=== PATIENT | male | born 1995 | race Hispanic/Latino ===

== ENCOUNTER 2021-01-08 15:16 | Emergency (ER) | payer MEDICAID ==
[2021-01-08 16:02] VITALS: BP 125/87
--- NOTE | 2021-01-08 16:47 | Emergency Department Report ---
HPI - General Chief Complaint: Back Pain/Injury Time Seen by Provider: 01/08/21 16:42 - HPI HPI: This is a 25-year-old male presents to the emergency department with a complaint of a 3 to 4-month history of mid back pain and bilateral lower side /flank pain. Patient came into the emergency department today as he says that it has worsened over the past week. Overall he says that worsens with any significant exertion. No known alleviating factors. Patient denies any fever, numbness or paresthesias, weakness, urinary or bladder incontinence or retention, difficulty with ambulation, rash, dysuria, hematuria, or any neurological symptoms. He has a past medical history of hypothyroidism, insulin-dependent diabetes. The patient has a primary care physician through the [facility] system and was supposed to see him a few days ago but missed the appointment. No recent travel or sick contacts at home. He is a tobacco smoker but denies any illicit drug use, including any IVDA. ED Past Medical Hx - Medications Home Medications: Home Medications Medication Instructions Recorded Confirmed Last Taken Type Cyclobenzaprine [Flexeril] 10 mg PO TID PRN #12 tablet 01/08/21 Unknown Rx Ibuprofen [Motrin 800 MG tab] 800 mg PO Q8HR PRN #20 tablet 01/08/21 Unknown Rx ED Review of Systems ROS: Stated complaint: BODY PAIN Other details as noted in HPI Comment: All other systems reviewed and negative Constitutional: denies: chills, fever Eyes: denies: eye pain, vision change ENT: denies: ear pain, throat pain Respiratory: denies: cough, shortness of breath Cardiovascular: denies: chest pain, palpitations Gastrointestinal: denies: abdominal pain, vomiting Genitourinary: denies: dysuria, discharge Musculoskeletal: back pain. denies: joint swelling Skin: denies: rash, lesions Neurological: denies: weakness, numbness, paresthesias Physical Exam - Physical Exam Vital Signs: Vital Signs 01/08/21 16:00 Temperature 98.3 F Pulse Rate 92 H Respiratory 16 Rate Blood Pressure 125/87 O2 Sat by Pulse 98 Oximetry Physical Exam: GENERAL: The patient is well-developed well-nourished. HENT: Normocephalic. Atraumatic. Patient has moist mucous membranes. EYES: Extraocular motions are intact. NECK: Supple. Trachea is midline. CHEST/LUNGS: Clear to auscultation. There is no respiratory distress noted. HEART/CARDIOVASCULAR: Regular. There is no tachycardia. There is no murmur. ABDOMEN: Abdomen is soft, nontender. Patient has normal bowel sounds. There is no abdominal distention. SKIN: Skin is warm and dry. NEURO: The patient is awake, alert, and oriented. The patient is cooperative. The patient has no focal neurologic deficits. Normal speech. MUSCULOSKELETAL: There is no tenderness or deformity. There is no limitation range of motion. There is no evidence of acute injury. Muscle strength 5 out of 5 for upper and lower extremities bilaterally. DTR patella +2/4 bilaterally. BACK: There is bilateral paraspinal tenderness to palpation from the mid thoracic down through the lumbar back. No CVA tenderness to palpation. ED Course Vital Signs 01/08/21 16:00 Temperature 98.3 F Pulse Rate 92 H Respiratory 16 Rate Blood Pressure 125/87 O2 Sat by Pulse 98 Oximetry ED Medical Decision Making - Medical Decision Making This patient presents with a 3 to 4-month history of mid back pain and bilateral lower flank pain. There is some reproducible paraspinal tenderness to palpation. Patient does not have any problems with bowel or bladder, numbness or paresthesias, or any neurological deficits. Muscle strength and DTRs are intact. Vital signs reassuring including being afebrile. Patient denies any dysuria or hematuria. Therefore, this all appears low suspicion for kidney stones, cauda equina, cord compression syndrome, epidural abscess. The back pain appears more consistent with something musculoskeletal as it worsens after significant exertion. He does not appear to have any emergency or life- threatening condition that would require admission or surgical intervention. He will be placed on anti-inflammatories and given a prescription for a muscle relaxer. He has been instructed to follow-up with his PCP and has also been given an outpatient referral for an orthopedist. Critical Care Time: No Critical care attestation.: If time is entered above; I have spent that time in minutes in the direct care of this critically ill patient, excluding procedure time. ED Disposition Clinical Impression: Bilateral flank pain Back pain Qualifiers: Back pain location: back pain in unspecified location Chronicity: chronic Back pain laterality: bilateral Qualified Code(s): M54.9 - Dorsalgia, unspecified; G89.29 - Other chronic pain Disposition: 01 HOME / SELF CARE / HOMELESS Is pt being admited?: No Condition: Stable Instructions: Flank Pain, Adult, Chronic Back Pain Additional Instructions: Please follow-up with your primary care physician through [facility] in the next few days. I am giving you a referral for a local orthopedist, Dr. Gonzalez, to follow-up regarding your back pains. You have been prescribed a medication that is sedating and therefore should not be taken prior to driving, working, and responsible for children and in no way should be mixed with alcohol of any quantity. Return to the emergency department with any worsening of your symptoms, new or concerning symptoms not addressed during this current emergency department visit, or with any acute distress. Prescriptions: Cyclobenzaprine [Flexeril] 10 mg PO TID PRN #12 tablet PRN Reason: Muscle Spasm Ibuprofen [Motrin 800 MG tab] 800 mg PO Q8HR PRN #20 tablet PRN Reason: Pain , Severe (7-10) Referrals: OBED GONZALEZ MD [Staff Physician] - 3-5 Days PCP, Your [Other] - 3-5 Days Time of Disposition: 16:47
== END 2021-01-08 17:21 | disposition home or self-care (01) ==
LOC: ED 15:16
DX: M54.9 Dorsalgia, unspecified (principal); R10.31 Right lower quadrant pain; R10.32 Left lower quadrant pain
CPT/HCPCS: 99281

== ENCOUNTER 2021-10-20 22:56 | Emergency (ER) | payer MEDICAID ==
[2021-10-21] MEDS ORDERED: ONDANSETRON 4 MG/2 ML INJ IV ONE (00:18)
[2021-10-21] MEDS ORDERED: MORPHINE 4 MG/1 ML INJ IV ONE (00:18)
--- NOTE | 2021-10-21 00:25 | Emergency Department Report ---
<NAVJOT PÉREZ - Last Filed: 10/21/21 05:59> ED General Adult HPI - General Chief complaint: Abdominal Pain Stated complaint: HEAD PAIN/ NAUSEA/VOMITING Time Seen by Provider: 10/21/21 00:11 Source: EMS Mode of arrival: Stretcher Limitations: No Limitations - History of Present Illness Initial comments: 26-year-old male with a past medical history of insulin-dependent diabetes, colitis, stomach ulcers, and cataracts presents to the hospital with complaints of hypoglycemia. Patient states his brother called EMS because he was unresponsive. Patient received D5 (unclear amount) and glucose was 73. Blood glucose 167 upon ED arrival. Patient states he now has a moderate to severe headache, nausea, and vomiting since waking up. He took 7.5 units of insulin and states he did eat prior to this episode. He denies infectious symptoms. Severity scale (0 -10): 0 - Related Data Previous Rx's Medication Instructions Recorded Last Taken Type Cyclobenzaprine [Flexeril] 10 mg PO TID PRN #12 tablet 01/08/21 Unknown Rx Ibuprofen [Motrin 800 MG tab] 800 mg PO Q8HR PRN #20 tablet 01/08/21 Unknown Rx Allergies Allergy/AdvReac Type Severity Reaction Status Date / Time No Known Allergies Allergy Unverified 01/08/21 16:34 ED Review of Systems Comment: All other systems reviewed and negative ED Past Medical Hx - Social History Smoking Status: Unknown if ever smoked Substance Use Type: Other - Medications Home Medications: Home Medications Medication Instructions Recorded Confirmed Last Taken Type Cyclobenzaprine [Flexeril] 10 mg PO TID PRN #12 tablet 01/08/21 Unknown Rx Ibuprofen [Motrin 800 MG tab] 800 mg PO Q8HR PRN #20 tablet 01/08/21 Unknown Rx ED Physical Exam - General Limitations: No Limitations - Other Other exam information: General: No acute distress Head: Atraumatic Eyes: Eyes closed refusing to make eye contact ENT: Moist mucous membranes Neck: Normal appearance, lower midline cervical tenderness Chest: Clear to auscultation bilaterally CV: Regular rate and rhythm Abdomen: Soft, normal bowel sounds, nontender, nondistended, no rebound or guarding Back: Normal inspection Extremity: Normal inspection, full range of motion Neuro: Alert O x 3, no facial asymmetry, speech clear, no gross motor sensory deficit Psych: Appropriate behavior Skin: No rash ED Course - Reevaluation(s) Reevaluation #1: 10/21/21 04:56 Patient mainly complains of a headache which is mildly improved after morphine but still persist. 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 I do not suspect that this is the cause of his pain given that his symptoms started only after unresponsive episode and hypoglycemia. Glucose has remained stable since ED stay without recurrent hypoglycemia. Patient has leukocytosis without obvious signs of infection. Patient complains of chronic colitis and has generalized abdominal pain. CT abdomen pelvis with IV contrast performed to rule out acute intra abdominal pathology requiring treatment. ED Medical Decision Making - Lab Data Result diagrams: 10/21/21 01:17 10/21/21 01:17 Lab Results 10/21/21 10/21/21 10/21/21 Range/Units 00:30 01:17 01:17 WBC 18.2 H (4.5-11.0) K/mm3 RBC 5.45 H (3.65-5.03) M/mm3 Hgb 15.1 (11.8-15.2) gm/dl Hct 46.8 H (35.5-45.6) % MCV 86 (84-94) fl MCH 28 (28-32) pg MCHC 32 (32-34) % RDW 14.2 (13.2-15.2) % Plt Count 372 (140-440) K/mm3 Add Manual Diff Complete Total Counted 100 Seg Neutrophils % [employer] Seg Neuts % (Manual) 94.0 H (40.0-70.0) % Band Neutrophils % 0 % Lymphocytes % (Manual) 4.0 L (13.4-35.0) % Reactive Lymphs % (Man) 0 % Monocytes % (Manual) 2.0 (0.0-7.3) % Eosinophils % (Manual) 0 (0.0-4.3) % Basophils % (Manual) 0 (0.0-1.8) % Metamyelocytes % 0 % Myelocytes % 0 % Promyelocytes % 0 % Blast Cells % 0 % Nucleated RBC % Not Reportable Seg Neutrophils # Man 17.1 H (1.8-7.7) K/mm3 Band Neutrophils # 0.0 K/mm3 Lymphocytes # (Manual) 0.7 L (1.2-5.4) K/mm3 Abs React Lymphs (Man) 0.0 K/mm3 Monocytes # (Manual) 0.4 (0.0-0.8) K/mm3 Eosinophils # (Manual) 0.0 (0.0-0.4) K/mm3 Basophils # (Manual) 0.0 (0.0-0.1) K/mm3 Metamyelocytes # 0.0 K/mm3 Myelocytes # 0.0 K/mm3 Promyelocytes # 0.0 K/mm3 Blast Cells # 0.0 K/mm3 WBC Morphology Not Reportable Hypersegmented Neuts Not Reportable Hyposegmented Neuts Not Reportable Hypogranular Neuts Not Reportable Smudge Cells Not Reportable Toxic Granulation Not Reportable Toxic Vacuolation Not Reportable Dohle Bodies Not Reportable Pelger-Huet Anomaly Not Reportable Rayo Rods Not Reportable Platelet Estimate Consistent w auto Clumped Platelets Not Reportable Plt Clumps, EDTA Not Reportable Large Platelets Not Reportable Giant Platelets Not Reportable Platelet Satelliting Not Reportable Plt Morphology Comment Not Reportable RBC Morphology Normal Dimorphic RBCs Not Reportable Polychromasia Not Reportable Hypochromasia Not Reportable Poikilocytosis Not Reportable Anisocytosis Not Reportable Microcytosis Not Reportable Macrocytosis Not Reportable Spherocytes Not Reportable Pappenheimer Bodies Not Reportable Sickle Cells Not Reportable Target Cells Not Reportable Tear Drop Cells Not Reportable Ovalocytes Not Reportable Helmet Cells Not Reportable Fernandez-Ronneby Bodies Not Reportable [place] Rings Not Reportable [place] Cells Not Reportable Bite Cells Not Reportable Crenated Cell Not Reportable Elliptocytes Not Reportable Acanthocytes (Spur) Not Reportable Rouleaux Not Reportable Hemoglobin C Crystals Not Reportable Schistocytes Not Reportable Malaria parasites Not Reportable [place] Bodies Not Reportable Hem Pathologist Commnt No Sodium 143 (137-145) mmol/L Potassium 4.4 (3.6-5.0) mmol/L Chloride 101.3 (98-107) mmol/L Carbon Dioxide 33 H (22-30) mmol/L Anion Gap 13 mmol/L BUN 10 (9-20) mg/dL Creatinine 0.8 (0.8-1.3) mg/dL Estimated GFR > 60 ml/min BUN/Creatinine Ratio 13 % Glucose 137 H (75-100) mg/dL POC Glucose 128 H (70-105) mg/dL Calcium 9.6 (8.4-10.2) mg/dL Total Bilirubin 0.70 (0.1-1.2) mg/dL AST 17 (5-40) units/L ALT 15 (7-56) units/L Alkaline Phosphatase 103 (35-129) units/L Total Protein 7.1 (6.3-8.2) g/dL Albumin 4.3 (3.9-5) g/dL Albumin/Globulin Ratio 1.5 % Urine Color (Yellow) Urine Turbidity (Clear) Urine pH (5.0-7.0) Ur Specific [place] (1.003-1.030) Urine Protein (Negative) mg/dL Urine Glucose (UA) (Negative) mg/dL Urine Ketones (Negative) mg/dL Urine Blood (Negative) Urine Nitrite (Negative) Urine Bilirubin (Negative) Urine Urobilinogen (<2.0) mg/dL Ur Leukocyte Esterase (Negative) Urine WBC (Auto) (0.0-6.0) /HPF Urine RBC (Auto) (0.0-6.0) /HPF Urine Bacteria (Auto) (Negative) /HPF Urine Mucus /HPF Urine Sperm (COUNSELLING PSYCHOLOGIST) /HPF Urine Opiates Screen Urine Methadone Screen Ur Barbiturates Screen Ur Phencyclidine Scrn Ur Amphetamines Screen U Benzodiazepines Scrn Urine Cocaine Screen U Marijuana (THC) Screen Drugs of Abuse Note Plasma/Serum Alcohol (0-0.07) % 10/21/21 10/21/21 10/21/21 Range/Units 01:17 01:22 02:18 WBC (4.5-11.0) K/mm3 RBC (3.65-5.03) M/mm3 Hgb (11.8-15.2) gm/dl Hct (35.5-45.6) % MCV (84-94) fl MCH (28-32) pg MCHC (32-34) % RDW (13.2-15.2) % Plt Count (140-440) K/mm3 Add Manual Diff Total Counted Seg Neutrophils % Seg Neuts % (Manual) (40.0-70.0) % Band Neutrophils % % Lymphocytes % (Manual) (13.4-35.0) % Reactive Lymphs % (Man) % Monocytes % (Manual) (0.0-7.3) % Eosinophils % (Manual) (0.0-4.3) % Basophils % (Manual) (0.0-1.8) % Metamyelocytes % % Myelocytes % % Promyelocytes % % Blast Cells % % Nucleated RBC % Seg Neutrophils # Man (1.8-7.7) K/mm3 Band Neutrophils # K/mm3 Lymphocytes # (Manual) (1.2-5.4) K/mm3 Abs React Lymphs (Man) K/mm3 Monocytes # (Manual) (0.0-0.8) K/mm3 Eosinophils # (Manual) (0.0-0.4) K/mm3 Basophils # (Manual) (0.0-0.1) K/mm3 Metamyelocytes # K/mm3 Myelocytes # K/mm3 Promyelocytes # K/mm3 Blast Cells # K/mm3 WBC Morphology Hypersegmented Neuts Hyposegmented Neuts Hypogranular Neuts Smudge Cells Toxic Granulation Toxic Vacuolation Dohle Bodies Pelger-Huet Anomaly Rayo Rods Platelet Estimate Clumped Platelets Plt Clumps, EDTA Large Platelets Giant Platelets Platelet Satelliting Plt Morphology Comment RBC Morphology Dimorphic RBCs Polychromasia Hypochromasia Poikilocytosis Anisocytosis Microcytosis Macrocytosis Spherocytes Pappenheimer Bodies Sickle Cells Target Cells Tear Drop Cells Ovalocytes Helmet Cells Fernandez-Ronneby Bodies [place] Rings [place] Cells Bite Cells Crenated Cell Elliptocytes Acanthocytes (Spur) Rouleaux Hemoglobin C Crystals Schistocytes Malaria parasites [place] Bodies Hem Pathologist Commnt Sodium (137-145) mmol/L Potassium (3.6-5.0) mmol/L Chloride (98-107) mmol/L Carbon Dioxide (22-30) mmol/L Anion Gap mmol/L BUN (9-20) mg/dL Creatinine (0.8-1.3) mg/dL Estimated GFR ml/min BUN/Creatinine Ratio % Glucose (75-100) mg/dL POC Glucose 138 H 139 H (70-105) mg/dL Calcium (8.4-10.2) mg/dL Total Bilirubin (0.1-1.2) mg/dL AST (5-40) units/L ALT (7-56) units/L Alkaline Phosphatase (35-129) units/L Total Protein (6.3-8.2) g/dL Albumin (3.9-5) g/dL Albumin/Globulin Ratio % Urine Color (Yellow) Urine Turbidity (Clear) Urine pH (5.0-7.0) Ur Specific [place] (1.003-1.030) Urine Protein (Negative) mg/dL Urine Glucose (UA) (Negative) mg/dL Urine Ketones (Negative) mg/dL Urine Blood (Negative) Urine Nitrite (Negative) Urine Bilirubin (Negative) Urine Urobilinogen (<2.0) mg/dL Ur Leukocyte Esterase (Negative) Urine WBC (Auto) (0.0-6.0) /HPF Urine RBC (Auto) (0.0-6.0) /HPF Urine Bacteria (Auto) (Negative) /HPF Urine Mucus /HPF Urine Sperm (COUNSELLING PSYCHOLOGIST) /HPF Urine Opiates Screen Urine Methadone Screen Ur Barbiturates Screen Ur Phencyclidine Scrn Ur Amphetamines Screen U Benzodiazepines Scrn Urine Cocaine Screen U Marijuana (THC) Screen Drugs of Abuse Note Plasma/Serum Alcohol < 0.01 (0-0.07) % 10/21/21 10/21/21 Range/Units Unknown Unknown WBC (4.5-11.0) K/mm3 RBC (3.65-5.03) M/mm3 Hgb (11.8-15.2) gm/dl Hct (35.5-45.6) % MCV (84-94) fl MCH (28-32) pg MCHC (32-34) % RDW (13.2-15.2) % Plt Count (140-440) K/mm3 Add Manual Diff Total Counted Seg Neutrophils % Seg Neuts % (Manual) (40.0-70.0) % Band Neutrophils % % Lymphocytes % (Manual) (13.4-35.0) % Reactive Lymphs % (Man) % Monocytes % (Manual) (0.0-7.3) % Eosinophils % (Manual) (0.0-4.3) % Basophils % (Manual) (0.0-1.8) % Metamyelocytes % % Myelocytes % % Promyelocytes % % Blast Cells % % Nucleated RBC % Seg Neutrophils # Man (1.8-7.7) K/mm3 Band Neutrophils # K/mm3 Lymphocytes # (Manual) (1.2-5.4) K/mm3 Abs React Lymphs (Man) K/mm3 Monocytes # (Manual) (0.0-0.8) K/mm3 Eosinophils # (Manual) (0.0-0.4) K/mm3 Basophils # (Manual) (0.0-0.1) K/mm3 Metamyelocytes # K/mm3 Myelocytes # K/mm3 Promyelocytes # K/mm3 Blast Cells # K/mm3 WBC Morphology Hypersegmented Neuts Hyposegmented Neuts Hypogranular Neuts Smudge Cells Toxic Granulation Toxic Vacuolation Dohle Bodies Pelger-Huet Anomaly Rayo Rods Platelet Estimate Clumped Platelets Plt Clumps, EDTA Large Platelets Giant Platelets Platelet Satelliting Plt Morphology Comment RBC Morphology Dimorphic RBCs Polychromasia Hypochromasia Poikilocytosis Anisocytosis Microcytosis Macrocytosis Spherocytes Pappenheimer Bodies Sickle Cells Target Cells Tear Drop Cells Ovalocytes Helmet Cells Fernandez-Ronneby Bodies [place] Rings [place] Cells Bite Cells Crenated Cell Elliptocytes Acanthocytes (Spur) Rouleaux Hemoglobin C Crystals Schistocytes Malaria parasites [place] Bodies Hem Pathologist Commnt Sodium (137-145) mmol/L Potassium (3.6-5.0) mmol/L Chloride (98-107) mmol/L Carbon Dioxide (22-30) mmol/L Anion Gap mmol/L BUN (9-20) mg/dL Creatinine (0.8-1.3) mg/dL Estimated GFR ml/min BUN/Creatinine Ratio % Glucose (75-100) mg/dL POC Glucose (70-105) mg/dL Calcium (8.4-10.2) mg/dL Total Bilirubin (0.1-1.2) mg/dL AST (5-40) units/L ALT (7-56) units/L Alkaline Phosphatase (35-129) units/L Total Protein (6.3-8.2) g/dL Albumin (3.9-5) g/dL Albumin/Globulin Ratio % Urine Color Yellow (Yellow) Urine Turbidity Clear (Clear) Urine pH 6.0 (5.0-7.0) Ur Specific [place] 1.011 (1.003-1.030) Urine Protein <15 mg/dl (Negative) mg/dL Urine Glucose (UA) >=500 (Negative) mg/dL Urine Ketones 20 (Negative) mg/dL Urine Blood Neg (Negative) Urine Nitrite Neg (Negative) Urine Bilirubin Neg (Negative) Urine Urobilinogen < 2.0 (<2.0) mg/dL Ur Leukocyte Esterase Neg (Negative) Urine WBC (Auto) 1.0 (0.0-6.0) /HPF Urine RBC (Auto) 4.0 (0.0-6.0) /HPF Urine Bacteria (Auto) 1+ (Negative) /HPF Urine Mucus Few /HPF Urine Sperm 1+ (COUNSELLING PSYCHOLOGIST) /HPF Urine Opiates Screen Negative Urine Methadone Screen Negative Ur Barbiturates Screen Negative Ur Phencyclidine Scrn Negative Ur Amphetamines Screen Negative U Benzodiazepines Scrn Negative Urine Cocaine Screen Negative U Marijuana (THC) Screen Negative Drugs of Abuse Note Disclamer Plasma/Serum Alcohol (0-0.07) % - Radiology Data Radiology results: report reviewed CT HEAD WITHOUT CONTRAST INDICATION / CLINICAL INFORMATION: Hypoglycemia episode, Syncope with a headache. TECHNIQUE: All CT scans at this location are performed using CT dose reduction for ALARA by means of automated exposure control. COMPARISON: None available. FINDINGS: HEMORRHAGE: None. EXTRA-AXIAL SPACES: Normal in size and morphology for the patient's age. VENTRICULAR SYSTEM: Normal in size and morphology for the patient's age. CEREBRAL PARENCHYMA: Incidental note is made of a right lateral ventricle subependymal lesion (series 2 image 17, series 601 image 44 and series 602 image 25). No acute territorial infarct. MIDLINE SHIFT / HERNIATION: None. CEREBELLUM / BRAINSTEM: No significant abnormality. ORBITS: Normal as visualized SOFT TISSUES: No significant abnormality. SKULL: No significant abnormality. PARANASAL SINUSES / MASTOID AIR CELLS: Normal as visualized ADDITIONAL FINDINGS: None. IMPRESSION: 1. No acute intracranial abnormality. 2. 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 This could be seen with tuberous sclerosis. CT CERVICAL SPINE WITHOUT CONTRAST INDICATION / CLINICAL INFORMATION: Hypoglycemia episode, Syncope with a headache. TECHNIQUE: Axial CT images were obtained through the cervical spine. Sagittal and coronal reformatted images were produced. All CT scans at this location are performed using CT dose reduction for ALARA by means of automated exposure control. COMPARISON: None available. FINDINGS: VERTEBRAE: No significant abnormality. ALIGNMENT: No significant abnormality. DISC SPACES: No significant abnormality. FACET JOINTS: No significant abnormality. CRANIOCERVICAL JUNCTION:No significant abnormality. SPINAL CANAL: No significant abnormality. PARASPINAL SOFT TISSUES: No significant abnormality. ADDITIONAL FINDINGS: None. LUNG APICES: No significant abnormality of visualized lungs. IMPRESSION: 1. No significant abnormality. CHEST 1 VIEW 10/21/2021 3:18 AM INDICATION / CLINICAL INFORMATION: HYPOGLYCEMIA leukocytosis. COMPARISON: 06/07/2007 FINDINGS: SUPPORT DEVICES: None. HEART / MEDIASTINUM: No significant abnormality. LUNGS / PLEURA: No significant pulmonary or pleural abnormality. No pneumothorax. ADDITIONAL FINDINGS: No significant additional findings. IMPRESSION: 1. No acute findings. - Medical Decision Making 26-year-old male presents to the hospital hypoglycemic episode after taking insulin. Complain of a headache and neck pain after unresponsive episode. Incidental CT head finding noted without signs of hydronephrosis. Report will be provided to patient for further outpatient work-up and evaluation C-spine unremarkable.. Labs unremarkable with exception of leukocytosis. Patient complains of chronic abdominal pain due to colitis and he needs to see a special ist. He does not complain of diarrhea or fever. CT performed to rule out acute pathology. Case will be signed out to Dr. English to follow-up CAT scan report and dispo Critical Care Time: No ED Disposition Clinical Impression: Hypoglycemia, Subependymoma, Abdominal pain, Headache Disposition: 01 HOME / SELF CARE / HOMELESS Is pt being admited?: No Does the pt Need Aspirin: No Condition: Stable Instructions: Abdominal Pain, Adult, Blood Glucose Monitoring, Adult Additional Instructions: Please follow-up with your regular doctor within 1 week. You may return if your symptoms worsen. <TRAM ENGLISH - Last Filed: 10/21/21 08:11> ED Review of Systems ROS: Stated complaint: HEAD PAIN/ NAUSEA/VOMITING Other details as noted in HPI ED Course Vital Signs 10/20/21 10/20/21 10/20/21 23:06 23:37 23:50 Temperature 98.6 F 98 F Pulse Rate 85 72 Respiratory 18 15 10 L Rate Blood Pressure Blood Pressure 151/98 137/94 [Right] O2 Sat by Pulse 99 100 100 Oximetry 10/21/21 10/21/21 10/21/21 00:00 00:16 00:30 Temperature Pulse Rate 74 82 85 Respiratory 11 L 9 L 16 Rate Blood Pressure 137/94 142/93 141/92 Blood Pressure [Right] O2 Sat by Pulse 100 100 100 Oximetry 06/30/22 06/30/22 06/30/22 00:46 01:04 01:16 Temperature Pulse Rate 81 78 77 Respiratory 9 L 9 L 10 L Rate Blood Pressure 142/84 Blood Pressure [Right] O2 Sat by Pulse 97 99 98 Oximetry 10/21/21 10/21/21 10/21/21 01:30 01:46 02:00 Temperature Pulse Rate 80 77 82 Respiratory 10 L 9 L 9 L Rate Blood Pressure 105/71 99/65 103/67 Blood Pressure [Right] O2 Sat by Pulse 99 99 Oximetry 10/21/21 10/21/21 10/21/21 02:16 02:30 02:46 Temperature Pulse Rate 79 77 79 Respiratory 8 L 9 L 8 L Rate Blood Pressure 108/62 103/60 103/59 Blood Pressure [Right] O2 Sat by Pulse Oximetry 10/21/21 10/21/21 10/21/21 03:00 03:16 03:30 Temperature Pulse Rate 79 78 78 Respiratory 8 L 8 L 8 L Rate Blood Pressure 91/63 100/55 108/55 Blood Pressure [Right] O2 Sat by Pulse Oximetry 10/21/21 10/21/21 04:51 07:50 Temperature Pulse Rate Respiratory Rate Blood Pressure Blood Pressure 105/74 [Right] O2 Sat by Pulse 100 Oximetry ED Medical Decision Making - Lab Data Result diagrams: 10/21/21 01:17 10/21/21 01:17 - Medical Decision Making CT abdomen and pelvis shows stool ball in the rectum along with moderate stool throughout the colon, otherwise no acute intra-abdominal pathology. There is a noted groundglass attenuation in the right lower lobe. Patient currently denies any respiratory symptoms. He is also afebrile. I do not suspect pneumonia. Repeat fingerstick is 311. Patient stable for discharge home with PCP follow-up within 1 week. Critical care attestation.: If time is entered above; I have spent that time in minutes in the direct care of this critically ill patient, excluding procedure time. ED Disposition Is pt being admited?: No Time of Disposition: 08:11
--- NOTE | 2021-10-21 01:25 | Cat Scan Report ---
CT HEAD WITHOUT CONTRAST INDICATION / CLINICAL INFORMATION: Hypoglycemia episode, Syncope with a headache. TECHNIQUE: All CT scans at this location are performed using CT dose reduction for ALARA by means of automated exposure control. COMPARISON: None available. FINDINGS: HEMORRHAGE: None. EXTRA-AXIAL SPACES: Normal in size and morphology for the patient's age. VENTRICULAR SYSTEM: Normal in size and morphology for the patient's age. CEREBRAL PARENCHYMA: Incidental note is made of a right lateral ventricle subependymal lesion (series 2 image 17, series 601 image 44 and series 602 image 25). No acute territorial infarct. MIDLINE SHIFT / HERNIATION: None. CEREBELLUM / BRAINSTEM: No significant abnormality. ORBITS: Normal as visualized SOFT TISSUES: No significant abnormality. SKULL: No significant abnormality. PARANASAL SINUSES / MASTOID AIR CELLS: Normal as visualized ADDITIONAL FINDINGS: None. IMPRESSION: 1. No acute intracranial abnormality. 2. 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 Thi s could be seen with tuberous sclerosis. Signer Name: Tye Redman DO Signed: 10/21/2021 1:20 AM Workstation Name: [id number]
--- NOTE | 2021-10-21 01:26 | Cat Scan Report ---
CT CERVICAL SPINE WITHOUT CONTRAST INDICATION / CLINICAL INFORMATION: Hypoglycemia episode, Syncope with a headache. TECHNIQUE: Axial CT images were obtained through the cervical spine. Sagittal and coronal reformatted images were produced. All CT scans at this location are performed using CT dose reduction for ALARA by means of automated exposure control. COMPARISON: None available. FINDINGS: VERTEBRAE: No significant abnormality. ALIGNMENT: No significant abnormality. DISC SPACES: No significant abnormality. FACET JOINTS: No significant abnormality. CRANIOCERVICAL JUNCTION:No significant abnormality. SPINAL CANAL: No significant abnormality. PARASPINAL SOFT TISSUES: No significant abnormality. ADDITIONAL FINDINGS: None. LUNG APICES: No significant abnormality of visualized lungs. IMPRESSION: 1. No significant abnormality. Signer Name: Tye Redman DO Signed: 10/21/2021 1:21 AM Workstation Name: [id number]
[2021-10-21 01:46] LABS: Hematocrit 46.8 % (35.5-45.6); Hemoglobin 15.1 gm/dl (11.8-15.2); Mean Corpuscular HGB Conc 32 % (32-34); Mean Corpuscular Volume 86 fl (84-94); Platelet Count 372 K/mm3 (140-440); Red Blood Count 5.45 M/mm3 (3.65-5.03); Red Cell Distribution Width 14.2 % (13.2-15.2)
[2021-10-21 02:05] LABS: Alanine Aminotransferase 15 units/L (7-56); Albumin 4.3 g/dL (3.9-5); BUN/Creatinine Ratio 13; Blood Urea Nitrogen 10 mg/dL (9-20); Calcium 9.6 mg/dL (8.4-10.2); Hemolysis Index 8
[2021-10-21 03:14] LABS: Basophils % (Manual) 0 % (0.0-1.8); Eosinophils % (Manual) 0 % (0.0-4.3); Total Cells Counted 100
[2021-10-21 03:15] LABS: Platelet Estimate Consistent w Auto; RBC Morphology Normal
[2021-10-21] MEDS ORDERED: SODIUM CHLORIDE 0.9% 1000 ML 1,000 ML IV ONE ×2 (03:44→04:57)
[2021-10-21 04:26] LABS: Bilirubin,Urine NEG (Negative); Blood,Urine NEG (Negative); Color,Urine Yellow (Yellow); Protein,Urine <15 mg/dL mg/dL (Negative); Urobilinogen,Urine < 2.0 mg/dL (<2.0)
--- NOTE | 2021-10-21 04:26 | XRay Report ---
CHEST 1 VIEW 10/21/2021 3:18 AM INDICATION / CLINICAL INFORMATION: HYPOGLYCEMIA leukocytosis. COMPARISON: 06/07/2007 FINDINGS: SUPPORT DEVICES: None. HEART / MEDIASTINUM: No significant abnormality. LUNGS / PLEURA: No significant pulmonary or pleural abnormality. No pneumothorax. ADDITIONAL FINDINGS: No significant additional findings. IMPRESSION: 1. No acute findings. Signer Name: Tye Redman DO Signed: 10/21/2021 4:21 AM Workstation Name: [id number]
[2021-10-21 04:30] LABS: Bacteria,Urine 1+ /HPF (Negative); Mucus,Urine FEW /HPF; Sperm,Urine 1+ /HPF (NP)
[2021-10-21 04:33] LABS: Amphetamine Screen,Urine Negative; Benzodiazepines Screen,Urine Negative; Cannabinoid Screen,Urine Negative; Cocaine Screen,Urine Negative; Methadone Screen,Urine Negative; Opiate Screen,Urine Negative
[2021-10-21] MEDS ORDERED: HYDROcodone/ACETAMINOPHEN 5-325 MG TAB PO ONE (04:52)
--- NOTE | 2021-10-21 06:50 | Cat Scan Report ---
CT ABDOMEN AND PELVIS WITH CONTRAST INDICATION / CLINICAL INFORMATION: Abd pain, Hx of Colitis, elevated WBC. TECHNIQUE: Axial CT images were obtained through the abdomen and pelvis after 100 cc Omnipaque [address] scans at this location are performed using CT dose reduction for ALARA by means of automated exposure control. COMPARISON: None available. FINDINGS: LOWER CHEST: There is groundglass attenuation within the right lower lobe. AORTA / ARTERIES: No significant abnormality. IVC / VEINS: No significant abnormality. LYMPH NODES: No significant adenopathy. COLON: Moderate stool ball within the rectum. There is also moderate stool throughout the colon. APPENDIX: No significant abnormality. STOMACH / SMALL BOWEL: No significant abnormality. PERITONEUM: No free fluid. No free air. No fluid collection. LIVER: No significant abnormality. GALLBLADDER: No significant abnormality. BILE DUCTS: No significant abnormality. PANCREAS: No significant abnormality. SPLEEN: No significant abnormality. ADRENALS: No significant abnormality. RIGHT KIDNEY / URETER: No significant abnormality. LEFT KIDNEY / URETER: No significant abnormality. URINARY BLADDER: No significant abnormality. REPRODUCTIVE ORGANS: No significant abnormality. SKELETAL SYSTEM: No significant abnormality. ADDITIONAL FINDINGS: None. IMPRESSION: 1. Groundglass attenuation within the right lower lobe which can be seen with infectious process vers us atelectasis. 2. There is a moderate stool ball within the rectum with moderate stool throughout the colon. Signer Name: Tye Redman DO Signed: 10/21/2021 6:45 AM Workstation Name: [id number]
[2021-10-21 08:18] VITALS: BP 101/60
== END 2021-10-21 08:25 | disposition home or self-care (01) ==
LOC: ED 22:56
DX: E16.2 Hypoglycemia, unspecified (principal); D43.2 Neoplasm of uncertain behavior of brain, unspecified; R10.9 Unspecified abdominal pain; R51.9 Headache, unspecified; Z79.899 Other long term (current) drug therapy
CPT/HCPCS: 36415; 70450; 71045; 72125; 74177; 80053; 80307; 81001; 82962; 85007; 85025; 96361; 96374; 96375; 99285; J2270; J2405; Q9967; 80320; G0480